=== PATIENT | female | born 1965 | race Caucasian/White ===

== ENCOUNTER → 2016-11-07 | Outpatient (CLI) | payer MEDICAID | LOC: CIMAGING 17:23 | PROVIDERS: ATTEND Physician Assistant Medical | DX: S80.911A Unspecified superficial injury of right knee, initial encounter (principal) | CPT/HCPCS: 73562-PO ==

== ENCOUNTER → 2017-02-16 | Outpatient (CLI) | payer OTHER ==
[~2017-02-16] MED LIST: GADOBUTROL 7.5 ML VIAL IVP ONE; IOPAMIDOL (ISOVUE 370) 100 ML BTL IV ONE; LIDOCAINE 1% 300 MG/30 ML SDV ONE
== END ==
LOC: FIMAGING 12:29
PROVIDERS: ATTEND Radiology Diagnostic Radiology
PROC: 3E0U3KZ Introduction of Other Diagnostic Substance into Joints, Percutaneous Approach (ICD-10-PCS; principal; 2017-02-16)
PROC: 3E0U3HZ Introduction of Radioactive Substance into Joints, Percutaneous Approach (ICD-10-PCS; principal; 2017-02-16)
DX: S43.431A Superior glenoid labrum lesion of right shoulder, initial encounter (principal); X58.XXXA Exposure to other specified factors, initial encounter
CPT/HCPCS: A9585; Q9967

== ENCOUNTER 2017-10-10 11:36 | Emergency (ER) | payer OTHER, MEDICAID ==
[2017-10-10 11:53] VITALS: O2SAT 96
--- NOTE | 2017-10-10 12:24 | EDPHY ---
H & P Stated Complaint: pt. states post-op x1wk and 1 day. unable to have BM., genralized abd pain HPI/ROS: CHIEF COMPLAINT: Constipation HISTORY OF PRESENT ILLNESS: This is a 52-year-old female who underwent shoulder surgery last week. She received general anesthesia for the surgery. Postoperatively she was taking Percocet every 4 hr. She has since been weaning herself from that medication and is now taking 2 Percocet during the day with additional dosing at night as needed. She is here because she has not had a bowel movement since Thursday, 5 days ago. She feels the urge but has been unable to move her bowels. No blood. She has tried Colace, prunes, and various liquids. REVIEW OF SYSTEMS: A ten point review of systems was performed and is negative with the exception of the items mentioned in the HPI. Past medical history: Hypothyroid Past surgical history: Right shoulder x3 Social history: She previously worked for [employer]. She is . No tobacco products. Occasional alcohol. General Appearance: Alert. Vital signs reviewed. 121/85, HR 120 at triage. Eyes: Pupils equal and round, no conjunctival injection, no discharge. Anicteric. ENT, Mouth: Mucous membranes are moist, no oropharyngeal erythema or edema. Neck: No lymphadenopathy, supple. Respiratory: Lungs are clear to auscultation; no wheezes, rales, or rhonchi. Cardiovascular: Regular rate and rhythm; no murmur, rub, or gallop. Not tachycardic at the time of my exam. Rectal: Brown stool in the rectal vault. Gastrointestinal: Abdomen is soft and nontender, no masses or organomegaly, bowel sounds normal. Skin: Warm and dry, no rashes on exposed skin, normal color. Back: Nontender to palpation over the thoracolumbar spine. No CVAT. Extremities: Bandages over surgical incisions right shoulder. Yellow/purple ecchymoses right anterior shoulder. Neurological: Alert and oriented. Moving all four extremities easily and equally. Psychiatric: Normal affect. - Personal History LMP (Females 10-55): Hysterectomy - Medical/Surgical History Hx Asthma: Yes Hx Chronic Respiratory Disease: No Hx Diabetes: No Hx Cardiac Disease: No Hx Renal Disease: No Hx Cirrhosis: No Hx Alcoholism: No Hx HIV/AIDS: No Hx Splenectomy or Spleen Trauma: No Other PMH: Appendectomy, migraines, immune deficiency,hypothyroid,asthma,UTI's - Social History Smoking Status: Never smoked Constitutional: Initial Vital Signs Temperature (C) 36.8 C 10/10/17 11:49 Heart Rate 120 H 10/10/17 11:49 Respiratory Rate 16 10/10/17 11:49 Blood Pressure 121/85 H 10/10/17 11:49 O2 Sat (%) 96 10/10/17 11:49 Allergies/Adverse Reactions: hydrocodone Allergy (Intermediate, Verified 10/10/17 11:45) migraines ciprofloxacin [From Cipro] Allergy (Verified 10/10/17 11:44) ciprofloxacin HCl [From Cipro] Allergy (Verified 10/10/17 11:44) erythromycin base Allergy (Verified 10/10/17 11:44) Sulfa (Sulfonamide Antibiotics) Allergy (Verified 10/10/17 11:44) sulfamethoxazole [From Bactrim] Allergy (Verified 10/10/17 11:44) trimethoprim [From Bactrim] Allergy (Verified 10/10/17 11:44) Home Medications: Medication Instructions Recorded ARMOUR THYROID 03/27/15 TOPIRAMATE 03/27/15 oxyCODONE/APAP 5/325 [Percocet 1 - 2 tab PO Q4H PRN #20 tab 03/28/15 5/325 (*)] Naproxen Sodium 10/10/17 Ondansetron Odt [Zofran Odt 4 mg 4 mg PO Q4 PRN #10 tab 10/10/17 (RX)] Proventil Inhaler HFA (*) 10/10/17 Tramadol HCl 10/10/17 Medical Decision Making ED Course/Re-evaluation: Enema x2 given in the emergency department. She had moderate amount of stool but continued with some pressure and rectal urgency. An attempt to manually disimpact her was made but I was unable to remove much stool by that method. She will return home and try magnesium citrate. I am recommending that she continue with a stool softener and also begin MiraLax. I suspect that her constipation is multifactorial with her recent surgery, general anesthesia, and use of opiates all contributing. No obstipation or obstruction. Differential Diagnosis: I considered a differential diagnosis that includes but is not limited to bowel obstruction, obstipation, constipation, and rectal mass. - Data Points Medications Given: Discontinued Medications Ondansetron HCl (Zofran Odt) 4 mg PO EDNOW ONE Stop: 10/10/17 13:29 Last Admin: 10/10/17 13:32 Dose: 4 mg Ondansetron HCl (Zofran Odt) 4 mg PO EDNOW ONE Stop: 10/10/17 14:58 Last Admin: 10/10/17 14:58 Dose: 4 mg Departure - Departure Disposition: Home, Routine, Self-Care Clinical Impression: Constipation Qualifiers: Constipation type: drug induced constipation Qualified Code(s): K59.03 - Drug induced constipation Condition: Good Instructions: Constipation (ED), High Fiber Diet (ED), Fleet Enema (ED) Additional Instructions: I recommend that you buy a bottle of magnesium citrate, which is an over-the- counter purchase in any drug store, and drink 1/2 of it this evening. You can try another enema if you would like. Please continue with the Colace. You should begin daily Miralax. Drink lots of water. Return if you are worse in any way. Referrals: Alyce Yang [Primary Care Provider] - As per Instructions Prescriptions: Ondansetron Odt [Zofran Odt 4 mg (RX)] 4 mg PO Q4 PRN #10 tab PRN Reason: nausea
[2017-10-10] MEDS ORDERED: ONDANSETRON DISINTEGRATING 4 MG TAB PO ONE ×2 (13:28→14:57)
[2017-10-10] MEDS ORDERED: ONDANSETRON DISINTEGRATING 4 MG TAB ONE (14:57)
[2017-10-10 15:16] VITALS: RESP 16; TEMP 98.2
[2017-10-10 16:08] VITALS: BP 152/84; PULSE 118
== END 2017-10-10 15:40 | disposition home or self-care (01) ==
LOC: CED 11:36
DX: K59.03 Drug induced constipation (principal); J45.909 Unspecified asthma, uncomplicated; T40.2X5A Adverse effect of other opioids, initial encounter